=== PATIENT | female | born 1955 | race Caucasian/White ===

== ENCOUNTER 2018-05-20 10:26 | Outpatient (RCR) | payer MEDICARE, MEDICAID | END 2018-05-25 13:26 | disposition home or self-care (01) | PROVIDERS: ATTEND Family Medicine | DX: Z86.73 Personal history of transient ischemic attack (TIA), and cerebral infarction without residual deficits (principal) ==

== ENCOUNTER 2018-05-26 09:41 | Outpatient (RCR) | payer MEDICARE, MEDICAID | END 2018-06-25 15:30 | disposition home or self-care (01) | PROVIDERS: ATTEND Family Medicine | DX: Z86.73 Personal history of transient ischemic attack (TIA), and cerebral infarction without residual deficits (principal) ==